=== PATIENT | male | born 1935 | race Caucasian/White ===

== ENCOUNTER 2016-08-17 13:18 | Outpatient (CLI) | payer MEDICARE, OTHER | END 2016-08-17 23:59 | DX: I25.10 Atherosclerotic heart disease of native coronary artery without angina pectoris (principal); E53.8 Deficiency of other specified B group vitamins; C61 Malignant neoplasm of prostate; Z79.899 Other long term (current) drug therapy ==

== ENCOUNTER 2017-08-16 08:00 | Outpatient (CLI) | payer MEDICARE, OTHER ==
[2017-08-16 13:24] LABS: BASOPHILS % (AUTO) 0.5 %; EOSINOPHILS # (AUTO) 0.1 10^3/uL (0.0-0.7); EOSINOPHILS % (AUTO) 2.7 %; HGB - HEMOGLOBIN 14.1 g/dL (14.0-18.0); LYMPHOCYTES # (AUTO) 1.4 10^3/uL (1.5-3.5); MEAN CORPUSCULAR HEMOGLOBIN 26.9 pg (27.0-31.0); MEAN CORPUSCULAR HGB CONC 32.3 g/dL (32.0-36.0); MEAN CORPUSCULAR VOLUME 83.4 fL (80.0-94.0); MEAN PLATELET VOLUME 8.8 fL (7.4-11.4); MONOCYTES # (AUTO) 0.4 10^3/uL (0.0-1.0); MONOCYTES % (AUTO) 9.9 %; NEUTROPHILS # (AUTO) 2.3 10^3/uL (1.5-6.6); NEUTROPHILS % (AUTO) 53.9 %; PLT - PLATELET COUNT 145 10^3/uL (130-450); RED BLOOD COUNT 5.22 10^6/uL (4.70-6.10); RED CELL DISTRIBUTION WIDTH 14.7 % (12.0-15.0); WHITE BLOOD COUNT 4.3 x10^3/uL (4.8-10.8)
[2017-08-16 14:47] LABS: ALBUMIN 4.5 g/dL (3.2-5.5); ALKALINE PHOSPHATASE 64 IU/L (42-121); ALT ALANINE AMINOTRANSFERASE 16 IU/L (10-60); AST ASPARTATE AMINOTRANSFERASE 28 IU/L (10-42); BILIRUBIN,TOTAL 0.9 mg/dL (0.2-1.0); BUN - BLOOD UREA NITROGEN 19 mg/dL (6-20); CALCIUM 9.2 mg/dL (8.5-10.3); CARBON DIOXIDE - CO2 27 mmol/L (21-32); CHLORIDE 100 mmol/L (101-111); CHOL/HDL RATIO 3.2 (<5.0); CHOLESTEROL 195 mg/dL; CREATININE 0.8 mg/dL (0.6-1.2); GFR - MDRD 93 (>89); GLUCOSE 87 mg/dL (70-100); HDL CHOLESTEROL 61 mg/dL; LDL CHOLESTEROL,CALCULATED 119 mg/dL; SODIUM 137 mmol/L (135-145); TOTAL PROTEIN 6.8 g/dL (6.7-8.2); VLDL CHOLESTEROL 15 mg/dL
== END 2017-08-16 08:01 | disposition home or self-care (01) ==
LOC: LAB.R 08:00
PROVIDERS: ATTEND Internal Medicine
DX: E53.8 Deficiency of other specified B group vitamins (principal); C61 Malignant neoplasm of prostate; I25.10 Atherosclerotic heart disease of native coronary artery without angina pectoris; E78.5 Hyperlipidemia, unspecified; Z79.899 Other long term (current) drug therapy
CPT/HCPCS: 80053; 80061; 83721; 84153; 84443; 85025

== ENCOUNTER 2017-12-21 08:12 | Outpatient (CLI) | payer MEDICARE, OTHER | END 2017-12-21 08:13 | disposition home or self-care (01) | LOC: LAB.R 08:12 | PROVIDERS: ATTEND Internal Medicine | DX: E78.5 Hyperlipidemia, unspecified (principal) | CPT/HCPCS: 83721 ==

== ENCOUNTER 2018-08-02 08:00 | Outpatient (CLI) | payer MEDICARE, OTHER ==
[2018-08-02 12:07] LABS: BASOPHILS % (AUTO) 0.6 %; EOSINOPHILS # (AUTO) 0.1 10^3/uL (0.0-0.7); EOSINOPHILS % (AUTO) 2.2 %; HGB - HEMOGLOBIN 14.3 g/dL (14.0-18.0); LYMPHOCYTES # (AUTO) 1.1 10^3/uL (1.5-3.5); LYMPHOCYTES % (AUTO) 27.6 %; MEAN CORPUSCULAR HEMOGLOBIN 27.9 pg (27.0-31.0); MEAN CORPUSCULAR HGB CONC 32.9 g/dL (32.0-36.0); MEAN CORPUSCULAR VOLUME 84.7 fL (80.0-94.0); MEAN PLATELET VOLUME 8.7 fL (7.4-11.4); MONOCYTES # (AUTO) 0.4 10^3/uL (0.0-1.0); MONOCYTES % (AUTO) 10.5 %; NEUTROPHILS # (AUTO) 2.4 10^3/uL (1.5-6.6); NEUTROPHILS % (AUTO) 59.1 %; PLT - PLATELET COUNT 136 10^3/uL (130-450); RED BLOOD COUNT 5.15 10^6/uL (4.70-6.10); RED CELL DISTRIBUTION WIDTH 15.1 % (12.0-15.0)
[2018-08-02 12:19] LABS: ALBUMIN/GLOBULIN RATIO 1.6 (1.0-2.2); ALKALINE PHOSPHATASE 64 IU/L (42-121); ALT ALANINE AMINOTRANSFERASE 17 IU/L (10-60); AST ASPARTATE AMINOTRANSFERASE 24 IU/L (10-42); BILIRUBIN,TOTAL 0.8 mg/dL (0.2-1.0); BUN - BLOOD UREA NITROGEN 17 mg/dL (6-20); CALCIUM 9.1 mg/dL (8.5-10.3); CARBON DIOXIDE - CO2 27 mmol/L (21-32); CHLORIDE 100 mmol/L (101-111); CHOL/HDL RATIO 3.3 (<5.0); CHOLESTEROL 174 mg/dL; CREATININE 0.7 mg/dL (0.6-1.2); GFR - MDRD 108 (>89); GLUCOSE 85 mg/dL (70-100); HDL CHOLESTEROL 53 mg/dL; LDL CHOLESTEROL,CALCULATED 107 mg/dL; SODIUM 138 mmol/L (135-145); TOTAL PROTEIN 6.5 g/dL (6.7-8.2); VLDL CHOLESTEROL 14 mg/dL
== END 2018-08-02 23:59 | disposition home or self-care (01) ==
LOC: LAB.R 08:00
PROVIDERS: ATTEND Internal Medicine
DX: E53.8 Deficiency of other specified B group vitamins (principal); C61 Malignant neoplasm of prostate; I25.10 Atherosclerotic heart disease of native coronary artery without angina pectoris; E78.5 Hyperlipidemia, unspecified; Z79.899 Other long term (current) drug therapy; Z12.5 Encounter for screening for malignant neoplasm of prostate
CPT/HCPCS: 36415; 80053; 80061; 85025; G0103; 83721; 84153

== ENCOUNTER 2018-08-07 13:00 | Outpatient (CLI) | payer MEDICARE, OTHER ==
[2018-08-07] MEDS ORDERED: IOVERSOL 320 100 ML VIAL IVP ONE ×2 (13:22→13:35)
--- NOTE | 2018-08-07 19:10 | CT Report ---
Reason: NECK MASS Procedure Date: 08/07/2018 Accession Number: [id number] / [id number] Procedure: CT - Neck Soft Tissue W/ CPT Code: FULL RESULT: EXAM: CT SOFT TISSUE NECK WITH CONTRAST. EXAM DATE: 08/07/2018 01:30 PM. HISTORY: Neck mass. COMPARISONS: None. TECHNIQUE: Routine soft tissue neck CT protocol. Reconstructions: Coronal and sagittal. IV contrast: OPTI 320, [address] mL. In accordance with CT protocol optimization, one or more of the following dose reduction techniques were utilized for this exam: automated exposure control, adjustment of mA and/or KV based on patient size, or use of iterative reconstructive technique. FINDINGS: Radiopaque skin marker at the site of symptom placed over the right parotid gland (image 50 series 3). Parotid space and parotid gland obscured by beam-hardening artifacts from dental hardware. Accounting for these artifacts, there is a bilobed hypodense intraparotid mass lesion measuring 2.4 x 3.1 x 2.7 cm (axial image 49 series 3 and coronal image 43 series 5). The lateral component is larger than the medial component. Although medial to the ramus of the mandible, the medial moiety remains lateral to the stylomandibular tunnel, suggesting that it remains within the superficial right parotid gland. Medial to the mass, mass appears to exert mass effect on the deep lobe of the right parotid, with asymmetric effacement of the right parapharyngeal space/fat. There is no significant associated calcification or mural nodularity. The left parotid gland and bilateral submandibular glands appear unremarkable. No evidence to suggest sialolithiasis. Atherosclerotic calcifications of bilateral cavernous carotid arteries. Otherwise, intracranial contents appear unremarkable. Orbits, infratemporal fossa, supervisor advice space and parapharyngeal space appear otherwise unremarkable. Carotid space appear unremarkable. Atherosclerotic calcification of bilateral carotid bulbs, without significant stenosis. Visualized vertebral arteries appear unremarkable. Thyroid gland appear unremarkable. Retropharyngeal soft tissue, tongue base and floor of mouth appear normal. Nasopharynx, oropharynx and hypopharynx appear unremarkable. Subglottic trachea and larynx appear unremarkable. Views of the chest show postoperative changes of sternotomy. Mediastinum and visualized aortic arch appear unremarkable. Visualized lungs are clear. Multilevel degenerative changes of the cervical spine most pronounced at C3-C4, C4-C5, C5-C6 and C6-C7. There is minimal, grade 1, 2 mm anterolisthesis at C3-C4 and C5-C6. No suspicious lytic or sclerotic osseous lesion. Multilevel facet degenerative changes. Paranasal sinuses and mastoid air cells appear well aerated. IMPRESSION: 1. Findings of a 2.4 x 3.1 x 2.7 cm bilobed hypodense, possibly cystic or cystlike well-circumscribed intraparotid mass lesion exerting mass effect on the deep right parotid tissue and effacing the right parapharyngeal space/fat. Differential consideration includes a parotid tumor such as pleomorphic adenoma. CT evaluation is limited secondary to beam-hardening artifacts from dental hardware. Consider MRI imaging as indicated. Otolaryngology consultation suggested. 2. No evidence for adenopathy. [facility] ADDENDUM: 08/08/18 13:05 Addendum requested to address comparison with ultrasound 08/05/2018. Mass lesion in the right parotid gland on CT corresponds to the hypoechoic nonvascular cystic mass lesion seen on ultrasound. Size is similar accounting for differences in modalities. Differential consideration remains including primary parotid tumor such as pleomorphic adenoma, Warthin's tumor, and sialocele. In younger patients, first branchial cleft cyst would be a consideration. Limited evaluation of the parotid (due to beam hardening artifacts) suggest no inflammation to suggest superimposed infection in the setting of a first branchial cleft cyst.
== END 2018-08-07 13:01 | disposition home or self-care (01) ==
LOC: DI 13:00
PROVIDERS: ATTEND Internal Medicine
DX: R22.1 Localized swelling, mass and lump, neck (principal)
CPT/HCPCS: 70491; Q9967

== ENCOUNTER 2021-06-01 09:30 | Outpatient (CLI) | payer MEDICARE, OTHER ==
[2021-06-01 09:57] LABS: BASOPHILS % (AUTO) 0.2 %; EOSINOPHILS # (AUTO) 0.1 10^3/uL (0.0-0.7); HCT - HEMATOCRIT 43.7 % (42.0-52.0); HGB - HEMOGLOBIN 14.2 g/dL (14.0-18.0); LYMPHOCYTES # (AUTO) 1.3 10^3/uL (1.5-3.5); LYMPHOCYTES % (AUTO) 25.6 %; MEAN CORPUSCULAR HEMOGLOBIN 27.9 pg (27.0-31.0); MEAN CORPUSCULAR HGB CONC 32.5 g/dL (32.0-36.0); MEAN CORPUSCULAR VOLUME 85.9 fL (80.0-94.0); MEAN PLATELET VOLUME 10.2 fL (7.4-11.4); MONOCYTES # (AUTO) 0.5 10^3/uL (0.0-1.0); MONOCYTES % (AUTO) 10.2 %; NEUTROPHILS # (AUTO) 3.2 10^3/uL (1.5-6.6); NEUTROPHILS % (AUTO) 62.8 %; PLT - PLATELET COUNT 160 10^3/uL (130-450); RED BLOOD COUNT 5.09 10^6/uL (4.70-6.10); RED CELL DISTRIBUTION WIDTH 14.6 % (12.0-15.0); WHITE BLOOD COUNT 5.1 x10^3/uL (4.8-10.8)
[2021-06-01 10:08] LABS: ALBUMIN 4.3 g/dL (3.2-5.5); ALBUMIN/GLOBULIN RATIO 1.4 (1.0-2.2); ALKALINE PHOSPHATASE 73 IU/L (42-121); ALT ALANINE AMINOTRANSFERASE 22 IU/L (10-60); AST ASPARTATE AMINOTRANSFERASE 33 IU/L (10-42); BILIRUBIN,TOTAL 0.9 mg/dL (0.2-1.0); BUN - BLOOD UREA NITROGEN 22 mg/dL (6-20); CALCIUM 9.3 mg/dL (8.5-10.3); CARBON DIOXIDE - CO2 29 mmol/L (21-32); CHLORIDE 101 mmol/L (101-111); CHOL/HDL RATIO 2.2 (<5.0); CHOLESTEROL 187 mg/dL; CREATININE 0.6 mg/dL (0.6-1.2); GFR - MDRD 128 (>89); GLUCOSE 118 mg/dL (70-100); HDL CHOLESTEROL 85 mg/dL; LDL CHOLESTEROL,CALCULATED 91 mg/dL; LDL/HDL RATIO 1.1 (<3.6); POTASSIUM 3.8 mmol/L (3.5-5.0); SODIUM 139 mmol/L (135-145); TOTAL PROTEIN 7.3 g/dL (6.7-8.2); TRIGLYCERIDES 56 mg/dL; VLDL CHOLESTEROL 11 mg/dL
== END 2021-06-01 09:31 | disposition home or self-care (01) ==
LOC: LAB 09:30
PROVIDERS: ATTEND Internal Medicine
DX: E78.5 Hyperlipidemia, unspecified (principal); Z79.899 Other long term (current) drug therapy
CPT/HCPCS: 36415; 80053; 80061; 83721; 85025

== ENCOUNTER 2021-08-12 09:27 | Outpatient (CLI) | payer MEDICARE, OTHER ==
--- NOTE | 2021-08-13 10:22 | XRAY Report ---
PROCEDURE: Lumbar Spine 2 View INDICATIONS: LOW BACK PAIN, UNSPECIFIED TECHNIQUE: 3 views of the lumbar spine were acquired. COMPARISON: CT abdomen and pelvis 08/28/2012 FINDINGS: Bones: Vertebral body height is maintained. Bilateral L5 pars defects are noted with grade 1 anterior spondylolisthesis, similar to the prior exam. Disc space narrowing and anterior osteophytes noted th roughout the exam with hypertrophic facet joints present particularly in the lower lumbar spine. Soft tissues: Overlying bowel gas pattern is normal. No suspicious soft tissue calcifications. Athe rosclerotic calcification of the abdominal aorta without evidence of aneurysm. IMPRESSION: 1. Grade 1 isthmic L5-S1 spondylolisthesis, stable from the prior. 2. Multilevel degenerative disc disease and arthropathy throughout the exam 3. Aortic atherosclerosis Reviewed by: Constantine Mendez MD on 08/13/2021 9:21 AM [place] Approved by: Constantine Mendez MD on 08/13/2021 9:21 AM [facility] Station ID: [id number]
== END 2021-08-12 23:59 | disposition home or self-care (01) ==
LOC: DI.N 09:27
PROVIDERS: ATTEND Registered Nurse
DX: M43.17 Spondylolisthesis, lumbosacral region (principal); M47.816 Spondylosis without myelopathy or radiculopathy, lumbar region; M51.06 Intervertebral disc disorders with myelopathy, lumbar region; M51.16 Intervertebral disc disorders with radiculopathy, lumbar region

== ENCOUNTER 2023-10-31 08:52 | Emergency (ER) | payer MEDICARE, OTHER ==
[2023-10-31 09:14] VITALS: BP 100/66; O2SAT 97
--- NOTE | 2023-10-31 09:25 | ED Physician Documentation ---
PD HPI SKIN - Stated complaint Stated Complaint: RT ARM WOUND - Chief complaint Chief Complaint: Wound - History obtained from History obtained from: Patient, Family - History of Present Illness Timing - onset: How many weeks ago (3) Timing - duration: Weeks (3) Timing - details: Abrupt onset, Still present (he fell and tore some skin on forearm. has been cleaning it, ointment and using Telfa dressing with wrap. No signs of infection, but states the wound has not fully healed. Asking that it be checked for any signs of infections in particular, and other ideas on the wound healing.) Location: RUE Quality / character: No: Painful, Swelling Recently seen: Not recently seen Review of Systems Neurologic: reports: Confused ( states the patiwent has been more confused lately and sometimes does not follow simple commands readily. Poor sleep. She is needing help with him.). denies: Focal weakness, Numbness PD PAST MEDICAL HISTORY - Past Medical History Past Medical History: Yes Cardiovascular: Hypertension, Coronary artery disease Neuro: Dementia (not diagnosed but believes he is developing.) - Past Surgical History Past Surgical History: Yes Ortho: Knee replacement Cardiovascular: CABG - Present Medications Home Medications: Ambulatory Orders Medication Instructions Recorded Confirmed No Known Home Medications 10/31/23 10/31/23 - Allergies Allergies/Adverse Reactions: Allergies Allergy/AdvReac Type Severity Reaction Status Date / Time No Known Drug Allergies Allergy Verified 10/31/23 09:12 - Social History Does the pt smoke?: No Smoking Status: Never smoker Does the pt drink ETOH?: Yes ETOH Use: Wine Does the pt have substance abuse?: No - Immunizations Immunizations are current?: Yes - POLST Patient has POLST: No PD ED PE NORMAL - Vitals Vital signs reviewed: Yes - General General: Alert and oriented X 3 (talkative and somewhat hard to get answers directly. ), No acute distress, Well developed/nourished - HEENT HEENT: Atraumatic - Neck Neck: Supple, no meningeal sign, No adenopathy - Cardiac Cardiac: RRR, No murmur - Respiratory Respiratory: Clear bilaterally - Abdomen Abdomen: Soft, Non tender - Derm Derm: Normal color, Warm and dry - Extremities Extremities: Other (right forearm with mostly healed partial thickness skin terar, held with some bandaging. No suspicion for fractures, given the good rom.) - Neuro Neuro: Alert and oriented X 3, No motor deficit, No sensory deficit Results - Vitals Vitals: Oxygen O2 Source Room air PD Medical Decision Making - ED course Complexity details: reviewed results (pt deferred to spouse, who felt the pt did not demonstrte signs of problems like that (alert not sleepy, no headache). She was mainly wanting advixese on the forarm;,I feel she is taking good care of it and just has been slower healing.), considered differential (these types of skin peeled lacs are slow healing and the current one here appears okay. given the pt being more confused and some weaker lately, I would be concerned about subdural or such and suggested CT head and also labs to assess low sodium, ESR, glucose, etc as other reasons for symptoms. ), d/w patient Departure - Departure Disposition: 01 Home, Self Care Clinical Impression: Avulsion of skin of forearm, Alcohol use disorder Condition: Stable Record reviewed to determine appropriate education?: Yes Instructions: ED Alcohol Abuse Comments: The wounds on your arm and scalp appear to be healing appropriately. These are traditionally very slow healing type of wounds and it looks like the current care is being done well and appropriate. Generally less adherent dressings to the area so it does not lift up the skin like the Telfa you had been using. Wrapping that over with Coban type dressing rather than tape so it does not pull on the skin. A little ointment on the areas daily so they are not too dry. These are the things you have been doing (more correctly your has been doing) and looks like it has been quite good job and the skin is healing about what I would expect. No signs of infection at this point. The scalp wound likely would be just a little cleansing and ointment daily. It is harder placed to bandage and does not necessarily need to be. Tylenol every 4-6 hours as needed for pains. Our social work also gave you information about support groups and treatment options for remaining off alcohol. You did say the alcohol use contributed to your falling. It is a fair burden for your to have to keep you in check from drinking too heavily and some of that should follow-up on other mechanisms such as AA, counseling, medical therapies through your primary care etc. Forms: PCP List Discharge Date/Time: 10/31/23 10:59
== END 2023-10-31 10:59 | disposition home or self-care (01) ==
LOC: ED 08:52
DX: S01.00XA Unspecified open wound of scalp, initial encounter (principal); S51.811A Laceration without foreign body of right forearm, initial encounter; W25.XXXA Contact with sharp glass, initial encounter; R41.0 Disorientation, unspecified; R53.1 Weakness
CPT/HCPCS: 99283